=== PATIENT | female | born 1975 | race Two or more races ===

== ENCOUNTER 2018-11-24 12:20 | Emergency (ER) | payer OTHER ==
[~2018-11-24] VITALS: Ht 144.8 cm; Wt 60.8 kg
[2018-11-24] MEDS ORDERED: MORPHINE SULFATE 10 MG/ML VIAL. IV ONE (12:45)
[2018-11-24] MEDS ORDERED: ONDANSETRON PF 4 MG/2 ML VIAL. IV ONE (12:45)
[2018-11-24 13:13] LABS: BASO # 0.1 x10^3/uL (0.0-0.2); BASO % 1 % (0-3); EOS # 0.2 x10^3/uL (0.0-0.7); EOS % 3 % (0-3); HEMATOCRIT 31.6 % (36.0-47.0); HEMOGLOBIN 10.2 g/dL (12.0-15.5); LYMPH # 1.7 x10^3/uL (1.0-4.8); LYMPH % 23 % (24-48); MEAN CORPUSCULAR HEMOGLOBIN 26 pg (25-35); MEAN CORPUSCULAR HGB CONC 32 g/dL (31-37); MEAN CORPUSCULAR VOLUME 80 fL (79-100); MONO # 0.5 x10^3/uL (0.0-1.1); MONO % 6 % (0-9); NEUT # 4.8 x10^3/uL (1.8-7.7); NEUT % 67 % (31-73); PLATELET COUNT 219 x10^3/uL (140-400); RED BLOOD COUNT 3.95 x10^6/uL (3.50-5.40); RED CELL DISTRIBUTION WIDTH 16.2 % (11.5-14.5); WHITE BLOOD COUNT 7.2 x10^3/uL (4.0-11.0)
[2018-11-24 13:24] LABS: CALCIUM 8.8 mg/dL (8.5-10.1); CREATININE 0.8 mg/dL (0.6-1.0); GFR 78.7; POTASSIUM 3.3 mmol/L (3.5-5.1)
[2018-11-24 13:25] LABS: BILIRUBIN,URINE NEGATIVE (NEG); CLARITY,URINE CLEAR; COLOR,URINE YELLOW; NITRITE,URINE NEGATIVE (NEG); PH,URINE 6.5; PROTEIN,URINE NEGATIVE (NEG-TRACE); UROBILINOGEN,URINE 0.2 mg/dL (0.2 mg/dL)
[2018-11-24 13:30] LABS: ALBUMIN 3.4 g/dL (3.4-5.0); ALBUMIN/GLOBULIN RATIO 0.9 (1.0-1.7); TOTAL BILIRUBIN 0.7 mg/dL (0.2-1.0); TOTAL PROTEIN 7.3 g/dL (6.4-8.2)
[2018-11-24 13:31] LABS: BACTERIA,URINE 0 /HPF (0-FEW); RBC,URINE 0 /HPF (0-2); SQUAMOUS EPITHELIAL CELL,UR MANY /LPF; WBC,URINE 0 /HPF (0-4)
--- NOTE | 2018-11-24 13:33 | PHYS DOC ---
Past Medical History Past Medical History: No Pertinent History Past Surgical History: Appendectomy, Tubal ligation Alcohol Use: None Drug Use: None Adult General Chief Complaint Chief Complaint: ABDOMINAL PAIN HPI HPI Patient is a 43 year old female with no significant medical history who presents to the ED today complaining of a sharp intermittent bilateral lower abdominal pain rated at 7 out of 10 described as sharp and intermittent that began yesterday. Patient denies any nausea vomiting. Denies any unusual vaginal discharge, denies any concerns for STDs. Patient denies anything exacerbating or relieving her pain. Review of Systems Review of Systems Constitutional: Denies fever or chills [] Eyes: Denies change in visual acuity, redness, or eye pain [] HENT: Denies nasal congestion or sore throat [] Respiratory: Denies cough or shortness of breath [] Cardiovascular: No additional information not addressed in HPI [] GI: Reports lower abdominal pain. Denies nausea, vomiting, bloody stools or diarrhea [] : Denies dysuria or hematuria [] Musculoskeletal: Denies back pain or joint pain [] Integument: Denies rash or skin lesions [] Neurologic: Denies headache, focal weakness or sensory changes [] All other systems were reviewed and found to be within normal limits, except as documented in this note. Current Medications Current Medications Current Medications Medications (Trade) Dose Ordered Sig/Ginette Start Time Stop Time Status Last Admin Dose Admin Morphine Sulfate (Morphine Sulfate) 5 mg 1X ONCE 11/24/18 12:45 11/24/18 12:46 DC 11/24/18 13:17 5 MG Ondansetron HCl (Zofran) 4 mg 1X ONCE 11/24/18 12:45 11/24/18 12:46 DC 11/24/18 13:17 4 MG Potassium Chloride (Klor-Con) 40 meq 1X ONCE 11/24/18 14:00 11/24/18 14:01 DC 11/24/18 14:16 40 MEQ Allergies Allergies Allergies Coded Allergies Type Severity Reaction Last Updated Verified No Known Drug Allergies 06/27/14 No Physical Exam Physical Exam Constitutional: Well developed, well nourished, no acute distress, non-toxic appearance. [] HENT: Normocephalic, atraumatic, bilateral external ears normal, oropharynx moist, no oral exudates, nose normal. [] Eyes: PERRLA, EOMI, conjunctiva normal, no discharge. [] Neck: Normal range of motion, no tenderness, supple, no stridor. [] Cardiovascular:Heart rate regular rhythm, no murmur [] Lungs & Thorax: Bilateral breath sounds clear to auscultation [] Abdomen: Bowel sounds normal, soft, no tenderness, no masses, no pulsatile masses. [] Skin: Warm, dry, no erythema, no rash. [] Back: No tenderness, no CVA tenderness. [] Extremities: No tenderness, no cyanosis, no clubbing, ROM intact, no edema. [] Neurologic: Alert and oriented X 3, normal motor function, normal sensory function, no focal deficits noted. [] Psychologic: Affect normal, judgement normal, mood normal. [] Current Patient Data Vital Signs Vital Signs Date Time Temp Pulse Resp B/P (MAP) Pulse Ox O2 Delivery O2 Flow Rate FiO2 11/24/18 12:41 98.5 106 18 164/90 (114) 99 Room Air 98.5 Lab Values Laboratory Tests Test 11/24/18 12:25 11/24/18 12:33 11/24/18 13:01 Urine Collection Type Unknown Urine Color Yellow Urine Clarity Clear Urine pH 6.5 Urine Specific [place] <=1.005 Urine Protein Negative mg/dL (NEG-TRACE) Urine Glucose (UA) Negative mg/dL (NEG) Urine Ketones (Stick) Negative mg/dL (NEG) Urine Blood Negative (NEG) Urine Nitrite Negative (NEG) Urine Bilirubin Negative (NEG) Urine Urobilinogen Dipstick 0.2 mg/dL (0.2 mg/dL) Urine Leukocyte Esterase Negative (NEG) Urine RBC 0 /HPF (0-2) Urine WBC 0 /HPF (0-4) Urine Squamous Epithelial Cells Many /LPF Urine Bacteria 0 /HPF (0-FEW) POC Urine HCG, Qualitative Hcg negative (Negative) White Blood Count 7.2 x10^3/uL (4.0-11.0) Red Blood Count 3.95 x10^6/uL (3.50-5.40) Hemoglobin 10.2 g/dL (12.0-15.5) L Hematocrit 31.6 % (36.0-47.0) L Mean Corpuscular Volume 80 fL (79-100) Mean Corpuscular Hemoglobin 26 pg (25-35) Mean Corpuscular Hemoglobin Concent 32 g/dL (31-37) Red Cell Distribution Width 16.2 % (11.5-14.5) H Platelet Count 219 x10^3/uL (140-400) Neutrophils (%) (Auto) 67 % (31-73) Lymphocytes (%) (Auto) 23 % (24-48) L Monocytes (%) (Auto) 6 % (0-9) Eosinophils (%) (Auto) 3 % (0-3) Basophils (%) (Auto) 1 % (0-3) Neutrophils # (Auto) 4.8 x10^3/uL (1.8-7.7) Lymphocytes # (Auto) 1.7 x10^3/uL (1.0-4.8) Monocytes # (Auto) 0.5 x10^3/uL (0.0-1.1) Eosinophils # (Auto) 0.2 x10^3/uL (0.0-0.7) Basophils # (Auto) 0.1 x10^3/uL (0.0-0.2) Sodium Level 138 mmol/L (136-145) Potassium Level 3.3 mmol/L (3.5-5.1) L Chloride Level 103 mmol/L (98-107) Carbon Dioxide Level 24 mmol/L (21-32) Anion Gap 11 (6-14) Blood Urea Nitrogen 9 mg/dL (7-20) Creatinine 0.8 mg/dL (0.6-1.0) Estimated GFR (Cockcroft-Gault) 78.7 BUN/Creatinine Ratio 11 (6-20) Glucose Level 103 mg/dL (70-99) H Calcium Level 8.8 mg/dL (8.5-10.1) Total Bilirubin 0.7 mg/dL (0.2-1.0) Aspartate Amino Transferase (AST) 17 U/L (15-37) Alanine Aminotransferase (ALT) 19 U/L (14-59) Alkaline Phosphatase 64 U/L (46-116) Total Protein 7.3 g/dL (6.4-8.2) Albumin 3.4 g/dL (3.4-5.0) Albumin/Globulin Ratio 0.9 (1.0-1.7) L Lipase 255 U/L (73-393) Laboratory Tests 11/24/18 13:01 Laboratory Tests 11/24/18 13:01 EKG EKG [] Radiology/Procedures Radiology/Procedures []PROCEDURE: PELVIS COMPLETE Examination: Ultrasound pelvis HISTORY: History of pelvic pain COMPARISON: None available FINDINGS: The uterus measures 10.0 x 7.9 x 6.5 cm. The endometrium measures 6 mm in thickness. The right ovary measures 3.5 x 1.60 1.6 cm. Left ovary measures 3.2 x 2.4 x 2.0 cm. Blood flow identified in the right and left ovaries. There is a 5.4 cm echogenicity identified in the anterior wall of the uterus likely a fibroid. IMPRESSION: 1. Large 5.4 cm uterine fibroid identified. Electronically signed by: Adalberto Jones MD (11/24/2018 2:31 PM) [facility] DICTATED and SIGNED BY: ADALBERTO JONES MD DATE: 11/24/18 1431 Course & Med Decision Making Course & Med Decision Making Pertinent Labs and Imaging studies reviewed. (See chart for details) This is a 43-year-old female patient presenting to the ED today with low abd ominal pain that began yesterday. Patient's labs are negative for any acute findings. Urinalysis negative for infection, noted for uterine fibroid. Discharged to home, provided ARM[employer]ER for follow-up. Dragon Disclaimer Dragon Disclaimer This electronic medical record was generated, in whole or in part, using a voice recognition dictation system. Departure Departure Impression: Primary Impression: Fibroids Disposition: HOME, SELF-CARE Condition: STABLE Referrals: NO PCP (PCP) TATA JC MD follow up in 1 week Patient Instructions: Fibroids, Gtir-[id number] Additional Instructions: You were evaluated in the emergency room and noted to have a uterine fibroid. Th is needs to be followed up with an [employer], you can see on on the provided or your own OBGYN in 1 week. You can take Tylenol or Motrin for pain. MIKA MONTOYA APRN Nov 24, 2018 13:33
[2018-11-24] MEDS ORDERED: POTASSIUM CHLORIDE 20 MEQ TABLET.ER. PO ONE (14:00)
--- NOTE | 2018-11-24 14:34 | RAD ---
Examination: Ultrasound pelvis HISTORY: History of pelvic pain COMPARISON: None available FINDINGS: The uterus measures 10.0 x 7.9 x 6.5 cm. The endometrium measures 6 mm in thickness. The right ovary measures 3.5 x 1.60 1.6 cm. Left ovary measures 3.2 x 2.4 x 2.0 cm. Blood flow identified in the right and left ovaries. There is a 5.4 cm echogenicity identified in the anterior wall of the uterus likely a fibroid. IMPRESSION: 1. Large 5.4 cm uterine fibroid identified. Electronically signed by: Adalberto Jones MD (11/24/2018 2:31 PM) [facility]
[2018-11-24 15:33] VITALS: BP 104/69
== END 2018-11-24 15:48 | disposition home or self-care (01) ==
LOC: ER 12:20
DX: D25.9 Leiomyoma of uterus, unspecified (principal); Z90.89 Acquired absence of other organs; Z98.51 Tubal ligation status
CPT/HCPCS: 36415; 76856; 80053; 81001; 81025; 83690; 85025; 96374; 96375; 99285; J2270; J2405

== ENCOUNTER 2020-01-04 22:21 | Emergency (ER) | payer OTHER ==
[~2020-01-04] VITALS: Ht 144.8 cm; Wt 55.0 kg
[2020-01-04 22:45] VITALS: BP 128/88
[2020-01-04] MEDS ORDERED: CIPROFLOXACIN 0.3% OPHTH SOLUTION 5ML BOTTLE. OS ONE (23:45)
[2020-01-04] MEDS ORDERED: TETRACAINE 0.5% OPHTH SOLUTION 4ML BOTTLE. OS ONE (23:45)
[2020-01-04] MEDS ORDERED: CYCLOPENTOLATE 1% OPHTH SOLUTION 2ML BOTTLE. OS ONE (23:55)
--- NOTE | 2020-01-05 00:44 | PHYS DOC ---
Past Medical History Past Medical History: No Pertinent History Past Surgical History: Appendectomy, Tubal ligation Smoking Status: Never Smoker Alcohol Use: None Drug Use: None General Adult EDM: Chief Complaint: EYE PROBLEMS HPI: HPI: Patient is a 44-year-old previously healthy female who presents to the emergency room complaining of left eye pain. Patient was working in the garden earlier today when she had a sting that spray her eye. She has had significant pain since that time. She has not washed it out. She is got some blurred vision and redness. She denies any other injuries. She states that she feels like something is inside the eye. Review of Systems: Review of Systems: General: Denies fever, chills, sweats, fatigue Eyes: Reports eye pain, eye redness, blurred vision HENT: Denies rhinorrhea, sore throat, earache Respiratory: Denies cough, shortness of breath, wheezing Cardiac: Denies edema, palpitations, chest pain GI: Denies abdominal pain, Nausea, vomiting MSK: Denies back pain, neck pain Skin: Denies rash, jaundice Neuro: Denies headache, dizziness Psychiatric: Denies SI/HI Heart Score: Risk Factors: Risk Factors: DM, Current or recent (<one month) smoker, HTN, HLP, family history of CAD, obesity. Risk Scores: Score 0 - 3: 2.5% MACE over next 6 weeks - Discharge Home Score 4 - 6: 20.3% MACE over next 6 weeks - Admit for Clinical Observation Score 7 - 10: 72.7% MACE over next 6 weeks - Early Invasive Strategies Current Medications: Current Medications Medications (Trade) Dose Ordered Sig/[facility] Start Time Stop Time Status Last Admin Dose Admin Ciprofloxacin (Ciloxan Ophth) 1 drop 1X ONCE 01/04/20 23:45 01/04/20 23:46 UNV Cyclopentolate HCl (Cyclogyl) 1 drop 1X ONCE 01/04/20 23:55 01/04/20 23:56 DC Tetracaine HCl (Tetracaine) 1 drop 1X ONCE 01/04/20 23:45 01/04/20 23:46 DC 01/04/20 23:46 1 DROP Allergies: Allergies: Allergies Coded Allergies Type Severity Reaction Last Updated Verified No Known Drug Allergies 06/27/14 No Physical Exam: PE: General: Awake, alert, NAD. Well Nourished, well hydrated. Cooperative HENT: Atraumatic, airway patent, moist oral mucosa Eyes: EOMI, PERRL. L eye: injected conjunctiva, episcleritis, epithelial defect consistent with abrasion over pupil Neck: Supple, trachea midline Respiratory: CTA bilaterally, normal effort, no wheezing/crackles CV: RRR, no murmur, cap refill <2 GI: Soft, nondistended, nontender, no masses MSK: No obvious deformities Skin: Warm, dry, intact Neuro: A&O x3, speech NL, sensory and motor grossly intact, no focal deficits Psych: Normal affect, normal mood, not suicidal or homicidal Current Patient Data: Vital Signs: Vital Signs Date Time Temp Pulse Resp B/P (MAP) Pulse Ox O2 Delivery O2 Flow Rate FiO2 01/04/20 22:45 98.4 74 18 128/88 (101) 99 Room Air 98.4 EKG: EKG: [] Radiology/Procedures: Radiology/Procedures: [] Course & Med Decision Making: Course & Med Decision Making Pertinent Labs and Imaging studies reviewed. (See chart for details) Patient is a 44-year-old female presents the emergency room complaining of pain in the eye after being sprayed with a sting bed. Given that this can cause a chemical burn within the eye the eye was washed out with a Jeremy lens. pH was 7. Patient has episcleritis with significant corneal abrasions. Patient will need to see an knockdown worker first thing tomorrow morning. We will place her on ciprofloxacin drops. Patient's test results and vitals while in the ED were fully reviewed and discussed with the patient. Patient is stable and at this time does not need admission to the hospital. We have discussed strict return pr ecautions and the importance of following up with their Primary Care Physician. Patient stated understanding and was given an opportunity to ask any questions. Patient is in agreement with plan. Dragon Disclaimer: Dragon Disclaimer: This electronic medical record was generated, in whole or in part, using a voice recognition dictation system. Departure Departure Impression: Primary Impression: Episcleritis of left eye Additional Impression: Corneal abrasion Disposition: HOME, SELF-CARE Condition: STABLE Referrals: DAVID GUTEIRREZ MD (PCP) JOZEF YODER MD Patient Instructions: Eye - Scleritis and Episcleritis Justicifation of Admission Dx: Justifications for Admission: Justification of Admission Dx: N/A ALVIN LEZAMA MD Jan 05, 2020 00:44
[2020-01-05] MEDS ORDERED: oxyCODONE/APAP 5/325 1 TAB TABLET PO ONE (01:00)
== END 2020-01-05 01:04 | disposition home or self-care (01) ==
LOC: ER 22:21
DX: S05.02XA Injury of conjunctiva and corneal abrasion without foreign body, left eye, initial encounter (principal); H15.102 Unspecified episcleritis, left eye; Z90.89 Acquired absence of other organs; Z98.51 Tubal ligation status; W57.XXXA Bitten or stung by nonvenomous insect and other nonvenomous arthropods, initial encounter; Y93.89 Activity, other specified; Y92.89 Other specified places as the place of occurrence of the external cause; Y99.0 Civilian activity done for income or pay
CPT/HCPCS: 99284